=== PATIENT | male | born 1950 | race Caucasian/White ===

== ENCOUNTER 2020-03-16 22:43 | Emergency (ER) | payer MEDICARE ==
[2020-03-16] MEDS ORDERED: Ketorolac Tromethamine 30 MG/ML VIAL ONE (23:23)
--- NOTE | 2020-03-16 23:33 | RAD ---
RIGHT ANKLE 3 VIEWS: HISTORY: Injury, right ankle pain FINDINGS: The ankle mortise is maintained. No acute fracture or dislocation is identified.
--- NOTE | 2020-03-16 23:34 | RAD ---
XR Tib Fib Rt Leg 2 View HISTORY: Injury, right leg pain FINDINGS: The right tibia and fibula are intact.
--- NOTE | 2020-03-16 23:35 | RAD ---
XR Foot Rt 3 View STANDARD HISTORY: Injury, right foot pain FINDINGS: No fracture or dislocation is identified. There is a posterior calcaneal spur.
== END 2020-03-17 00:08 | disposition home or self-care (01) ==
LOC: ERS 22:43
DX: S93.401A Sprain of unspecified ligament of right ankle, initial encounter (principal); S90.921A Unspecified superficial injury of right foot, initial encounter; E03.9 Hypothyroidism, unspecified; K21.9 Gastro-esophageal reflux disease without esophagitis; F17.220 Nicotine dependence, chewing tobacco, uncomplicated; W17.2XXA Fall into hole, initial encounter; Z79.899 Other long term (current) drug therapy
CPT/HCPCS: 96372; J1885